=== PATIENT | female | born 1970 | race Caucasian/White ===

== ENCOUNTER 2024-10-28 00:33 | Day surgery (SDC) | payer OTHER, SELFPAY ==
[2024-10-18 13:37] VITALS: BMI 25.8
--- OUTSIDE RECORDS SUMMARY | 2024-10-28 00:35 | XMS_ITS | Encounter Summary ---
Author Organization [facility] Address [address] [place] [address] Care Team Providers Care Data Communications Technician Name Role Phone Flash Radha REYEZP Primary Care Provider [phone] Renee Ragland CERTIFIED NEURODIAGNOSTIC TECHNOLOGIST-C Unavailable [phone] Paul Mei MD Unavailable [phone] Encounter Details Date Type Department Care Team (Late st Contact Info) Description 10/29/2021 Prep for Procedure [facility] Medical [facility] General Surgery - [place] [address], [address] [place] [address] Clarence Chandler MD Social History Tobacco Use Types Packs/Day Years Used Date Smoking Tobacco: Never Smokeless Tobacco: Never Comments:Provider to pastoral counselor Alcohol Use Standard Drinks/Week Comments Yes 0 (1 standard drink = 0.6 oz pur e alcohol) Socially PHQ-2 Answer Date Recorded PHQ-2 Score - If the patient scores above 3, please move on to questions 3-9 1 10/21/2021 Comments No Sex and Gender Information Value Date Recorded Sex Assigned at Female 07/23/2024 7:02 AM SOA INTEGRATION ARCHITECT Legal Sex Female 10:49 PM CDT Gender Identity Female 09/27/2024 11:37 AM CDT Sexual Orientation Not on file 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 No / Unsure 10/25/2021 1:33 PM CDT documented as of this encounter Plan of Treatment Upcoming Encounters Date Type Department Care Team (Late st Contact Info) Description 11/07/2024 2:00 PM CDT Appointment [facility] Diabetes & Nutrition Services [address] [place] [address] Radha Vidales FNP [address] [place] [address] documented as of this encounter Visit Diagnoses Not on filedocumented in this encounter Additional Health Concerns Infection Onset Date Last Indicated Resolved Time COVID-19 Rule Out 10/28/2021 10/28/2021 11/04/2021 12:32 AM CDT COVID-19 Rule Out 02/26/2022 02/26/2022 02/28/2022 1:01 PM CDT COVID-19 Rule Out 04/18/2023 04/18/2023 04/18/2023 7:19 PM CDT Assessment Noted Time PHQ-9 Depression Total Score: 0 03/17/20 1:14 PM CDT documented as of this encounter Care Teams Data Communications Technician Relationship Specialty Start Date End Date Radha Vidales FNP [address] [place] [address] PCP - General Nurse Practitioner Family 03/10/21 Renee Ragland, CERTIFIED NEURODIAGNOSTIC TECHNOLOGIST-C [address] [place] [address] Nurse Practitioner NURSE PRACTITIONER 03/28/22 Paul Mei MD [address] [address] Referring Physician GASTROENTEROLOGY 03/28/22 documented as of this encounter
--- OUTSIDE RECORDS SUMMARY | 2024-10-28 00:35 | XMS_ITS | Encounter Summary ---
Author Organization [facility] Address [facility] [place] [address] Care Team Providers Care Dry Curer Name Role Phone Flash Radha REYES Primary Care Provider [phone] Renee Ragland HOME ATTENDANT-C Unavailable [phone] Paul Mei MD Unavailable [phone] Encounter Details Date Type Department Care Team (Late st Contact Info) Description 01/11/2023 Statzup Message Enc [facility] Medical [facility] General Surgery - [place] [address] [facility], [address] [place] [address] Renee Ragland, HOME ATTENDANT-C [address] [address] Question regarding CBC W/DIFF AUTOMATED Social History Tobacco Use Types Packs/Day Years Used Date Smoking Tobacco: Never Smokeless Tobacco: Never Comments:Provider to halfway house counselor Alcohol Use Standard Drinks/Week Comments Yes 0 (1 standard drink = 0.6 oz pur e alcohol) Socially PHQ-2 Answer Date Recorded PHQ-2 Score - If the patient scores above 3, please move on to questions 3-9 1 10/21/2021 Comments No Sex and Gender Information Value Date Recorded Sex Assigned at Female 07/23/2024 7:02 AM NETWORK RELATIONS CONSULTANT Legal Sex Female 10:49 PM CDT Gender Identity Female 09/27/2024 11:37 AM CDT Sexual Orientation Not on file 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 Not on file Not on file documented as of this encounter Plan of Treatment Upcoming Encounters Date Type Department Care Team (Late st Contact Info) Description 11/07/2024 2:00 PM CDT Appointment [facility] Diabetes & Nutrition Services [address] [place] [address] Radha Vidales FNP [address] [place] [address] documented as of this encounter Visit Diagnoses Not on filedocumented in this encounter Additional Health Concerns Infection Onset Date Last Indicated Resolved Time COVID-19 Rule Out 04/18/2023 04/18/2023 04/18/2023 7:19 PM CDT Assessment Noted Time PHQ-9 Depression Total Score: 0 03/17/20 1:14 PM CDT documented as of this encounter Care Teams Dry Curer Relationship Specialty Start Date End Date Radha Vidales FNP [address] [place] [address] PCP - General Nurse Practitioner Family 03/10/21 Renee Ragland, HOME ATTENDANT-C [address] [place] [address] Nurse Practitioner NURSE PRACTITIONER 03/28/22 Paul Mei MD [address] [address] Referring Physician GASTROENTEROLOGY 03/28/22 documented as of this encounter
--- OUTSIDE RECORDS SUMMARY | 2024-10-28 00:35 | XMS_ITS | Patient Health Record ---
Author Organization [facility] Address [address] [facility] [address] [place] [address] Care Team Providers Care Help Desk Internship Name Role Phone Flash POLO, Radha Primary Care Provider Penny Hernandez NP, FILOMENA Jay [phone] ALLERGIES No Known Allergies REASON FOR REFERRAL No Information MEDICATIONS Medication SIG (Take, Route, Frequency, Duration) Notes Start Date End Date Status Protonix 40 MG 1 tablet Orally Once a day Active Hyoscyamine Sulfate 0.125 MG DISSOLVE 1 TABLET UNDER TONGUE 3 TIMES A DAY NEEDED for 90 Active Multivitamins Active Famotidine 20 MG 1 tablet at bedtime as needed Orally Once a day Active Wellbutrin SR 100 MG 1 tablet in the morning Orally Once a day Active Fiber - as directed Orally A ctive Colestipol HCl 1 GM TAKE 2 TABLETS BY MOUTH EVERY DAY Orally Once a day for 30 days Needs office visit for future refills Active Encounters Encounter Location Date Provider Diagnosis [facility] [address] [facility] [address] [place] [address] 12/25/2023 FILOMENA NELSON [facility] [address] [facility] [address] [place] [address] 01/15/2024 FILOMENA NELSON PLAN OF TREATMENT Pending Test Test Name Order Date CT Scan : Abd & Pelvis with IV and oral contrast 03/03/2022 CT ABDOMEN W/O CONTRAST 03/28/2022 CT Abdomen and Pelvis 02/28/2022 BUN, Creatinine 03/30/2022 BUN, Creatinine 04/01/2022 Insurance Providers Payer Name Payer Address Payer Phone Subscriber Number Group Number Insured Name Patient Relationship to Insured Coverage Start Date Coverage End Date [employer] PPO [address] [address] [place], [place] [id number] 01 Elizabeth Porter Self - patient is the insured MEDICAL (GENERAL) HISTORY Medical History History ICD Code anxiety asthma kidney stones gerd ulcers gallbladder dysfunction depression Surgical History Surgery Date(Month/Year) cholecystectomy 90's uterine ablation cervical disc hernia repair colonoscopy/EGD 2013 colon/EGD 2003
--- OUTSIDE RECORDS SUMMARY | 2024-10-28 00:35 | XMS_ITS | Encounter Summary ---
Author Organization [facility] Address [address] [place] [address] Care Team Providers Care Diplomatic Interpreter/Translator Name Role Phone Flash Radha REYES Primary Care Provider [phone] Renee Ragland TITLE ABSTRACTOR-C Unavailable [phone] Paul Mei MD Unavailable [phone] Encounter Details Date Type Department Care Team (Late st Contact Info) Description 09/11/2024 MyChart Message Enc [facility] [address] [place], [place] [id number] Cheryl Mccoy, TECHNICAL SERVICES REPRESENTATIVE [address] [place], [place] [id number] Blood test Social History Tobacco Use Types Packs/Day Years Used Date Smoking Tobacco: Never Passive Smoke Exposure: Never Smokeless Tobacco: Never Comments:Provider to adolescent counselor Alcohol Use Standard Drinks/Week Comments Yes 0 (1 standard drink = 0.6 oz pur e alcohol) Socially PHQ-2 Answer Date Recorded Patient Health Questionnaire-2 Score 0 07/10/2024 Comments No Sex and Gender Information Value Date Recorded Sex Assigned at Female 07/23/2024 7:02 AM BLENDER Legal Sex Female 10:49 PM CDT Gender Identity Female 09/27/2024 11:37 AM CDT Sexual Orientation Not on file 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 Not on file Not on file documented as of this encounter Plan of Treatment Upcoming Encounters Date Type Department Care Team (Late st Contact Info) Description 11/07/2024 2:00 PM CDT Appointment [facility] Diabetes & Nutrition Services [address] [place] [address] Radha Vidales FNP [address] [place] [address] documented as of this encounter Visit Diagnoses Not on filedocumented in this encounter Additional Health Concerns Assessment Noted Time PHQ-9 Depression Total Score: 0 05/22/20 24 11:20 AM BLENDER documented as of this encounter Care Teams Diplomatic Interpreter/Translator Relationship Specialty Start Date End Date Radha Vidales FNP [address] [place] [address] PCP - General Nurse Practitioner Family 03/10/21 Renee Ragland, TITLE ABSTRACTOR-C [address] [place] [address] Nurse Practitioner NURSE PRACTITIONER 03/28/22 Paul Mei MD [address] [address] Referring Physician GASTROENTEROLOGY 03/28/22 documented as of this encounter
--- OUTSIDE RECORDS SUMMARY | 2024-10-28 00:35 | XMS_ITS | Encounter Summary ---
Author Organization [facility] Address [address] [place] [address] Care Team Providers Care Insurance Territory Manager Name Role Phone Radha Vidales Primary Care Provider Renee Ragland MANGANESE WHEELER-C Unavailable [phone] Paul Mei MD Unavailable [phone] Encounter Details Date Type Department Care Team (Late st Contact Info) Description 10/16/2024 Results Follow-Up [facility] [address] [place], [place] [id number] Radah Vidales FNP [address] [place] [id number] HEMOGLOBIN A1C, LIPID PROFILE, THYROID STIMULATING HORMONE, VITAMIN D, 25 OH TOTAL Social History Tobacco Use Types Packs/Day Years Used Date Smoking Tobacco: Never Passive Smoke Exposure: Never Smokeless Tobacco: Never Comments:Provider to pet counselor Alcohol Use Standard Drinks/Week Comments Yes 0 (1 standard drink = 0.6 oz pur e alcohol) Socially PHQ-2 Answer Date Recorded Patient Health Questionnaire-2 Score 0 07/10/2024 Comments No Sex and Gender Information Value Date Recorded Sex Assigned at Female 07/23/2024 7:02 AM TUBULAR PRODUCTS FABRICATOR Legal Sex Female 10:49 PM CDT Gender Identity Female 09/27/2024 11:37 AM CDT Sexual Orientation Not on file 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 documented in this encounter Plan of Treatment Upcoming Encounters Date Type Department Care Team (Late st Contact Info) Description 11/07/2024 2:00 PM CDT Appointment [facility] Diabetes & Nutrition Services [address] [place] [address] Radha Vidales FNP [address] [place] [address] documented as of this encounter Visit Diagnoses Not on filedocumented in this encounter Additional Health Concerns Assessment Noted Time PHQ-9 Depression Total Score: 0 05/22/20 24 11:20 AM TUBULAR PRODUCTS FABRICATOR documented as of this encounter Care Teams Insurance Territory Manager Relationship Specialty Start Date End Date Radha Vidales FNP [address] [place] [address] PCP - General Nurse Practitioner Family 03/10/21 Renee Ragland, MANGANESE WHEELER-C [address] [facility] [place] [address] Nurse Practitioner NURSE PRACTITIONER 03/28/22 Paul Mei MD [address] [address] Referring Physician GASTROENTEROLOGY 03/28/22 documented as of this encounter
--- OUTSIDE RECORDS SUMMARY | 2024-10-28 00:36 | XMS_ITS | Encounter Summary ---
Author Organization [facility] Address [address] [place] [address] Care Team Providers Care Compensation Administrator Name Role Phone Radha Vidales Renetta REYES Primary Care Provider [phone] Renee Ragland RESUME SPECIALIST-C Unavailable [phone] Paul Mei MD Unavailable [phone] Encounter Details Date Type Department Care Team (Late st Contact Info) Description 02/22/2022 Prep for Procedure [facility] One Day Services [address] [place] [address] Paul Mei MD [address] [facility] [address] [place] [address] Social History Tobacco Use Types Packs/Day Years Used Date Smoking Tobacco: Never Smokeless Tobacco: Never Comments:Provider to direct selling counselor Alcohol Use Standard Drinks/Week Comments Yes 0 (1 standard drink = 0.6 oz pur e alcohol) Socially PHQ-2 Answer Date Recorded PHQ-2 Score - If the patient scores above 3, please move on to questions 3-9 1 10/21/2021 Comments No Sex and Gender Information Value Date Recorded Sex Assigned at Female 07/23/2024 7:02 AM MINERALOGY TEACHER Legal Sex Female 10:49 PM CDT Gender Identity Female 09/27/2024 11:37 AM CDT Sexual Orientation Not on file 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 No / Unsure 02/22/2022 2:15 PM CDT documented as of this encounter Plan of Treatment Upcoming Encounters Date Type Department Care Team (Late st Contact Info) Description 11/07/2024 2:00 PM CDT Appointment [facility] Diabetes & Nutrition Services [address] [place] [address] Radha Vidales, [facility] [address] [facility] [place] [address] documented as of this encounter Results * PRE-SURGICAL/PRE-PROCEDURE CORONAVIRUS (COVID 19) (02/26/2022 10:55 AM CDT) SPEC DESCRIPTION NASAL 02/27/20 10:53 AM CDT [facility] CORONAVIRUS SARS COV 2 PCR (RESP) NEGATIVE NEGATIVE 02/28/2022 1:01 PM CDT [facility] Comment: THE SARS-CoV-2 TEST HAS BEEN AUTHORIZED BY THE FDA UNDER AN EUA FOR USE BY AUTHORIZED LABORATORIES. PERFORMED BY NUCLEIC ACID AMPLIFICATION PCR FIRST TEST UNKNOWN 02/26/2022 10:53 AM CDT [facility] EMPLOYED IN HEALTHCARE NO 02/26/2022 10:53 AM CDT [facility] SYMPTOMATIC DEFINED BY CDC NO 02/26/2022 10:53 AM CDT [facility] HOSPITALIZATION STATUS NO 02/26/2022 10:53 AM CDT [facility] PATIENT IN ICU NO 02/26/2022 10:53 AM CDT [facility] RESIDENT OF [facility] NO 02/26/2022 10:53 AM CDT [facility] NOT 02/26/2022 10:53 AM CDT [facility] NASAL STRUCTURE / Unknown 02/26/2022 10:55 AM CDT Paul Mei MD MICROBIOLOGY - GENERAL NICK CURTIS Final Result [facility] [address] [place] [address], [place] [phone] [facility] [address] [place] [address], [place] [phone] documented in this encounter Visit Diagnoses Diagnosis Preop testing- Primary Preoperative examination, unspecified documented in this encounter Additional Health Concerns Infection Onset Date Last Indicated Resolved Time COVID-19 Rule Out 02/26/2022 02/26/2022 02/28/2022 1:01 PM CDT COVID-19 Rule Out 04/18/2023 04/18/2023 04/18/2023 7:19 PM CDT Assessment Noted Time PHQ-9 Depression Total Score: 0 03/17/20 1:14 PM CDT documented as of this encounter Care Teams Compensation Administrator Relationship Specialty Start Date End Date Radha Vidales FNP [address] [place] [id number] PCP - General Nurse Practitioner Family 03/10/21 Renee Ragland, RESUME SPECIALIST-C [address] [place] [address] Nurse Practitioner NURSE PRACTITIONER 03/28/22 Paul Mei MD [address] [address] Referring Physician GASTROENTEROLOGY 03/28/22 documented as of this encounter
--- OUTSIDE RECORDS SUMMARY | 2024-10-28 00:36 | XMS_ITS | Clinical Summary ---
Author Organization [facility] Address [address] [place] [address] Care Team Providers Care Patents Examiner Name Role Phone Flash Radha K FNP Primary Care Provider [phone] Renee Ragland VALVE LINER RUBBER-C Unavailable [phone] Paul Mei MD Unavailable [phone] Allergies Active Allergy Reactions Criticality Noted Date Comments Amoxicillin-Pot Clavulanate Hives 04/20/2018 Patient states she is not allergic to penicillins or cephalosporins, just amoxicillin due to the hives Gluten Meal GI Upset 02/17/2023 Medications fluticasone propionate (FLONASE) 50 MCG/ACT nasal sprayIndications:Se asonal allergies USE 2 SPRAYS IN EACH NOSTRIL EVERY DAY 48 mL 2 Active buPROPion (WELLBUTRIN) 75 MG tabletIndications: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 180 tablet 4 4 Active Elastic Bandages & Supports (POST-OP SHOE/SOFT TOP WOMEN) MiscIndications:Darline sed fracture of base of fifth metatarsal bone with routine healing, left Wear daily x 3 weeks 1 each 4 Active fluticasone-salmete rol (WIXELA INHUB) 100-50 MCG/ACT inhalerIndications: Acute cough,Acute bronchitis, unspecified organism Inhale 1 puff into the lungs 2 (two) times daily. 14 capsule 4 Active albuterol sulfate HFA 108 (90 Base) MCG/ACT inhalerIndications: Acute cough,Bronchitis,Mi ld intermittent asthma with acute exacerbation (HHS/HCC) INHALE 2 PUFFS BY MOUTH EVERY 4 HOURS NEEDED FOR COUGH/WHEEZE 18 g 4 Active ALPRAZolam (XANAX) 0.25 MG tabletIndications:P anic attacks Take 1 tablet (0.25 mg total) by mouth as needed for Sleep. 10 tablet 5 Active famotidine (PEPCID) 20 MG tabletIndications:G astroesophageal reflux disease without esophagitis Take 1 tablet (20 mg total) by mouth 2 (two) times daily. 180 tablet 5 Active ondansetron (ZOFRAN-ODT) 4 MG disintegrating tabletIndications:N ausea Take 1 tablet (4 mg total) by mouth every 8 (eight) hours as needed for Nausea. 20 tablet 5 Active pantoprazole EC (PROTONIX) 40 MG tabletIndications:G astroesophageal reflux disease without esophagitis Take 1 tablet (40 mg total) by mouth daily. 90 tablet 1 5 Active valACYclovir (VALTREX) 1 g tabletIndications:H erpes labialis TAKE 2 TABLETS BY MOUTH TWICE A DAY X 1 DAY NEEDED FOR FEVER BLISTERS 12 tablet 5 Active meloxicam (MOBIC) 15 MG tabletIndications:A bdominal wall pain in right upper quadrant Take 1 tablet (15 mg total) by mouth daily. 14 tablet 5 Active Active Problems Problem Noted Date Diagnosed Date Abnormal uterine bleeding 02/24/2023 Abnormal ultrasound of endometrium 02/24/2023 Enteritis 10/21/2021 Mesenteric adenitis 10/21/2021 Unspecified abdominal pain 10/01/2021 Overview (10/21/2021): RLQ x 4 weeks, no appetite Mild persistent asthma with acute exacerbation ( HHS/HCC) 03/17/2021 Environmental and seasonal allergies 03/10/2021 Fibrocystic breast changes, right 03/28/2018 Anxiety and depression 06/11/2015 Encounters Date Type Department Care Team Description 10/16/2024 7:00 AM CDT Laboratory Only [facility] [address] [place] [address] Eve Odonnell NP Defrain, Chad J, MD 10/16/2024 6:56 AM CDT - 10/16/2024 11:59 PM CDT Hospital Encounter [facility] [address] [place] [address] Eve Odonnell NP Discharge Disposition: Home or Self Care (Routine Discharge) 10/16/2024 Results Follow-Up [facility] [address] [place] [address] Radha Vidales, SUPERVISOR WOUND HEMOGLOBIN A1C, LIPID PROFILE, THYROID STIMULATING HORMONE, VITAMIN D, 25 OH TOTAL 10/16/2024 Orders Only [facility] [address] [place] [address] Eve Odonnell NP 10/16/2024 Orders Only [facility] [address] [place] [address] Eve Odonnell NP 10/16/2024 Travel 10/03/2024 Telephone [facility] [address] [place] [address] Radha Vidales, SUPERVISOR WOUND Referral 09/30/2024 MyChart Message Enc [facility] [address] [place] [address] Radha Vidales, SUPERVISOR WOUND Referrals 09/27/2024 11:40 AM CDT Office Visit [facility] [address] [place] [address] Radha Vidales, SUPERVISOR WOUND Pain; Back Pain (Right side pain that goes to back sometimes) 09/27/2024 Travel 09/18/2024 Telephone [facility] [address] [place] [address] Radha Vidales, SUPERVISOR WOUND Referral 09/16/2024 7:56 AM CDT - 09/16/2024 11:59 PM CDT Hospital Encounter [facility] [address] [place] [address] Cheryl Pugh APRN Discharge Disposition: Home or Self Care (Routine Discharge) 09/16/2024 Travel 09/11/2024 6:33 AM CDT - 09/11/2024 11:59 PM CDT Hospital Encounter [facility] [address] [place] [address] Radha Vidales FNP Discharge Disposition: Home or Self Care (Routine Discharge) 09/11/2024 MyChart Message Enc [facility] [address] [place] [address] Cheryl Pugh APRN Blood test 09/11/2024 Travel 09/09/2024 8:40 AM CDT Office Visit [facility] [address] [place] [address] Cheryl Pugh APRN Knee Injury (left knee injury/pain strain. Happened yesterday morning./) 09/09/2024 MyChart Message Enc [facility] [address] [place] [address] Cheryl Pugh APRN First off wanted to say I appreciate how thorough u were with my ailments! But was gonna ask if there was a liver test and pancreas blood test we could possibly do, I can t get in for a sonogram till next week at the soonest and know those may come back 09/09/2024 Travel 08/21/2024 Telephone [facility] [address] [place] [address] Radha Vidales FNP Sinus Concern from Last 3 Months Immunizations Immunization Administration Dates Next Due Dtap 01/23/2020 Family History Medical History Relation Comments Hypertension Brother COPD Father Cancer Father multiple myeloma Father Cancer Mother Heart Disease Mother esophageal cancer Mother Heart Disease Paternal Grandmother Breast Cancer Neg Hx Relation Status Comments Brother Daughter Alive Father Mother Paternal Grandmother Son Alive Social History Tobacco Use Types Packs/Day Years Used Date Smoking Tobacco: Never Passive Smoke Exposure: Never Smokeless Tobacco: Never Tobacco Cessation:Counseling Given: No 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 Alcohol Use Standard Drinks/Week Comments Yes 0 (1 standard drink = 0.6 oz pur e alcohol) Socially PHQ-2 Answer Date Recorded Patient Health Questionnaire-2 Score 0 07/10/2024 Comments No Sex and Gender Information Value Date Recorded Sex Assigned at Female 07/23/2024 7:02 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 Sex Female 10:49 PM CDT Gender Identity Female 09/27/2024 11:37 AM CDT Sexual Orientation Not on file 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 Not on file Not on file Last Filed Vital Signs Vital Sign Reading Time Taken Comments Blood Pressure 98/62 09/27/2024 11:26 AM CDT Pulse 71 09/27/2024 11:26 AM CDT Temperature 37.4 C (99.3 F) 09/27/2024 11:26 AM CDT Respiratory Rate 16 09/27/2024 11:26 AM CDT Oxygen Saturation 99% 09/27/2024 11:26 AM CDT Inhaled Oxygen Concentration - - Weight 63.2 kg (139 lb 4 oz) 09/27/2024 11:26 AM CDT Height 154.9 cm (5' 1 ) 09/27/2024 11:26 AM CDT Body Mass Index 26.31 09/27/2024 11:26 AM CDT Plan of Treatment Upcoming Encounters Date Type Department Care Team (Late st Contact Info) Description 11/07/2024 2:00 PM CDT Appointment [facility] [address] [place] [address] Radha Vidales, [address] [place], [place] [id number], RD Health Maintenance Due Date Last Done Comments Cervical Cancer Screening Pa p Smear (Age 30 to 64) Every 3 Years 1972 Colorectal Cancer Screening Colonoscopy (10 Years) 1972 Annual Physical 01/29/1975 Hepatitis C 01/29/1990 Hepatitis B Vaccines (1 of 3 - 19+ 3-dose series) 01/29/1991 Pneumococcal Vaccine: 50+ Ye ars (1 of 2 - PCV) 01/29/1991 Cervical Cancer Screening Pa p with HPV Testing (Age 30 to 64) Every 5 Years 01/29/2002 Cervical Cancer Screening with HPV 01/29/2002 Zoster Vaccines (1 of 2) 01/29/2022 Mammogram Screening 04/05/2023 04/05/2021 COVID-19 Vaccine (1 - 2023-2 5 season) 2024 DTaP, Tdap and Td Vaccines ( 2 - Tdap) 01/22/2030 01/23/2020 PHQ-2 (Physician [place]) Completed 07/10/2024 Meningococcal B Vaccine Aged Out No l onger eligible based on patient's age to complete this topic Meningococcal Vaccine Aged Out No daniel barbara eligible based on patient's age to complete this topic RSV Immunizations Under 20 Months Aged Out No longer eligible based on patient's age to complete this topic Medical Devices Implanted Type Area Consolidator Device Identifier Shelf Expiration Date Model / Serial / Lot Bone Bone Neck Procedures Procedure Name Priority Date/Time Associated Diagnosis Comments ELASTASE, PANCREATIC (EL-1), FECAL, QUALITATIVE/SEMI-QUANT ITATIVE Routine 10/16/2024 7:30 AM CDT Celiac disease (HHS/HCC) Diarrhea Abdominal pain FECAL FAT, QUALITATIVE Routine 7:30 AM CDT Celiac disease (HHS/HCC) Diarrhea Abdominal pain CELIAC DISEASE COMP PANEL Routine 10/16/2024 7:03 AM CDT Celiac disease (HHS/HCC) Diarrhea of presumed infectious origin Stomach ache VITAMIN D, 25 OH TOTAL Routine 7:[address] [facility] TSH Routine 10/16/2024 7: 03 AM CDT [facility] LIPID W/CALC LDL Routine 10/16/2024 7:[address] [facility] HEMOGLOBIN A1C Routine 10/16/2024 7:03 AM CDT URINALYSIS AUTO DIP Routine 09/27/2024 Elevated blood sugar GLUCOSE BLOOD, MONITOR DEVICE Today 09/27/2024 Elevated blood sugar US ABD COMPLETE Routine 09/16/2024 8:49 AM CDT RUQ abdominal pain CBC W/DIFF AUTOMATED Routine 09/11/2024 6:35 AM CDT RUQ abdominal pain COMPREHENSIVE METABOLIC PANEL Routine 09/11/2024 6:35 AM CDT RUQ abdominal pain AMYLASE Routine 09/11/2024 6:35 AM CDT RUQ abdominal pain LIPASE Routine 09/11/2024 6:35 AM CDT RUQ abdominal pain MG SCREENING W ROCK LYNDA DIGI Routine 04/05/2021 10:55 AM CDT Breast cancer screening by mammogram from Last 3 Months or Most Recently Relevant to Health Maintenance Results * (ABNORMAL) FECAL FAT, QUALITATIVE (10/16/2024 7:30 AM CDT) FECAL FAT QUALITATIVE (STOOL) ABNORMAL( A) NORMAL 10/20/2024 1:20 PM CDT [facility] ERNESTINE MAE Comment: Test Performed by Jenny Jimenez, [employer] [facility] [place], [address] [place] [address] Sekou Kidd M.D., Ph.D., Director of Laboratories , [facility] [id number] 10/16/2024 7:30 AM CDT us Eve Odonnell NP LABORATORY Final Result [facility] [place] [id number] [place], [place] , * ELASTASE, PANCREATIC (EL-1), FECAL, QUALITATIVE/SEMI-QUANTITATIVE (10/16/2024 7:30 AM CDT) PANCREATIC ELASTASE-1 >800 >200 mcg/g 10/25/2024 12:32 AM CDT [facility]al TENZINSAHARA LY Comment: E-1 mcg/g feces Interpretation <100 Severe exocrine pancreatic insufficiency 100-200 Mild to moderate exocrine pancreatic insufficiency >200 Normal Test performed by [employer] [address] [place] [address] Diesel Lube Tech: Anabel Dillon MD,PHD,ZAIN Test Reported by [facility] [place], [employer], [address] [place], [place] Sekou Kidd M.D., Ph.D., Director of Laboratories , [facility] [id number] STOOL SPECIMEN / Unknown 10/16/2024 7:30 AM CDT us Eve Odonnell NP BODY FLUIDS AND STOOLS ORDERA BLES Final Result [facility] [id number] [place] [address], * CELIAC DISEASE COMP PANEL (10/16/2024 7:03 AM CDT) INTERPRETATION REPORT 10/21/2024 7:51 AM CDT [facility] Comment: No serological evidence for celiac disease is present. tTG may normalize in individuals with celiac disease who maintain a gluten free diet. If high suspicion of celiac disease, consider HLA DQ2 and DQ8 testing to rule out celiac disease. TISSUE TRANSGLUTAMINASE IGA AB <1.0 <15.0 U/mL 10/21/2024 7:51 AM CDT [facility] ERNESTINE MAE Comment: Value Interpretation <15.0 Antibody not detected > or = 15.0 Antibody detected IGA 206 47 - 310 mg/dL 10/21/2024 7:51 AM CDT [facility] ERNESTINE MAE Comment: Test Performed by [employer], [employer] [place], [address] [place], [place] Sekou Kidd M.D., Ph.D., Director of Laboratories , [facility] [id number] 10/16/2024 7:03 AM CDT Eve Odonnell NP LABORATORY Final Result GPal [address] , [place] [phone] * VITAMIN D, 25 OH TOTAL (10/16/2024 7:03 AM CDT) VITAMIN D 25 HYDROXY S/P/B 72 30 - 100 NG/ML 10/16/2024 10:49 AM CDT [facility] 10/16/2024 7:03 AM CDT Tyler Harris MD LABORATORY Final Result Performing Organization Address [facility]/ZIP Co de Phone Number [facility] [address] [place] [address], [place] [phone] * THYROID STIMULATING HORMONE (10/16/2024 7:03 AM CDT) TSH 2.140 0.358 - 3.74 uIU/ML 10/16/2024 10:47 AM CDT [facility] Comment: HIGH DOSES OF BIOTIN MAY INTERFERE WITH THIS TEST RESULT. CORRELATION TO CLINICAL HISTORY AND PRESENTATION RECOMMENDED. 10/16/2024 7:03 AM CDT Tyler Harris MD LABORATORY Final Result [facility] [address] [place] [address], [place] [phone] * (ABNORMAL) LIPID PROFILE (10/16/2024 7:03 AM CDT) CHOLESTEROL 182 <200 MG/DL 10/16/2024 10:47 AM CDT [facility] TRIGLYCERIDES 85 <150 MG/DL 10/16/2024 10:47 AM CDT [facility] HDL 63 >40.0 MG/DL 10/16/2024 10:47 AM CDT [facility] LDL (CALCULATED) 102(H) <100 MG/DL 10/16/2024 10:47 AM CDT [facility] NON HDL CHOLESTEROL 119 <130 MG/DL 10/16/2024 10:47 AM CDT [facility] CHOL/HDL RATIO 2.9 0.0 - 4.5 10/16/2024 10:47 AM CDT [facility] VLDL CALCULATION 17 5 - 55 MG/DL 10/16/2024 10:47 AM CDT [facility] LIPID INTERPRETATION 10/16/2024 10:47 AM CDT [facility] Comment: NIH CONCENSUS REPORT RECOMMENDATIONS: ADULT CHILD LOW RISK: CHOLESTEROL <200 <170 TRIGLYCERIDE <150 --- HDL >=60 --- LDL <100 <110 BORDERLINE: CHOLESTEROL 200-239 170-199 TRIGLYCERIDE 150-199 --- HDL 40-59 --- LDL 100-159 110-129 HIGH RISK: CHOLESTEROL >=240 >=200 TRIGLYCERIDE >=200 --- HDL <40 --- LDL >=160 >=130 10/16/2024 7:03 AM CDT Tyler Harris MD LABORATORY Final Result [facility] [address] [place] [address], [place] [phone] * HEMOGLOBIN A1C (10/16/2024 7:03 AM CDT) HGB A1C 5.0 <5.7 % 10/16/2024 10:58 AM CDT [facility] Comment: ADA GUIDELINES 2010 5.7 TO 6.4% INCREASED RISK OF DIABETES > OR = 6.5% CONSISTENT WITH DIABETES ESTIMATED AVG GLUCOSE 97 mg/dL 10/16/2024 10:58 AM CDT [facility] 10/16/2024 7:03 AM CDT us Tyler Harris MD LABORATORY Final Result [facility] [address] [place] [address], [place] [phone] * (ABNORMAL) URINALYSIS AUTO DIP (09/27/2024) Pathologist [facility] COLOR (U) PALE YELLOW [facility]LLOW [facility] ([facility]), [place] TRANSPARENCY CLOUDY(A) [facility]), [place] GLUCOSE (U) NEGATIVE NEGATIVE MG/DL [facility] (201), [place] BILIRUBIN (U) NEGATIVE NEGATIVE -[facility] (201), [place] KETONES MG/DL (U) NEGATIVE NEGATIVE MG/DL [facility] (201)[place] SPECIFIC GRAVITY (U) 1.015 1.001 - 1.035 [facility] (201), [place] BLOOD (U) NEGATIVE NEGATIVE [facility] (201), [place] U PH 6.0 5.0 - 9.0 [facility] (201), [place] PROTEIN (U) NEGATIVE NEGATIVE mg/dL [facility] (201), [place] UROBILINOGEN 0.2 0.2 - 1.0 EU/dL = mg/dL [facility] (201), [place] NITRITES NEGATIVE NEGATIVE MG/DL [facility] (201), [place] LEUKOCYTES (U) NEGATIVE NEGATIVE -HE [facility] (201)[place] URINE SPECIMEN OBTAINED BY CLEAN CATCH PROCEDURE / Unknown 09/27/2024 Radha Vidales [facility] URINE ORDERABLES Final Result Performing Organization Address [facility] Co de Phone Number [facility] (201), [address] [address], [place] [phone] * GLUCOSE BLOOD, MONITOR DEVICE (09/27/2024) GLUCOSE WHOLE BLOOD 84 70 - 100 mg/dL [facility] (201), [place] 09/27/2024 Radha Vidales SUPERVISOR WOUND LABORATORY Final Result Performing Organization Address [facility] Co de Phone Number [facility] (201), [address] [address], [place] [phone] * US ABD COMPLETE (09/16/2024 8:49 AM CDT) Anatomical Region Laterality Modality Abdomen Computed Tomogra phy 09/16/2024 9:53 AM CDT Impressions 09/16/2024 9:59 AM CDT IMPRESSION: 1. Cholecystectomy.. No biliary ductal dilatation. 2. No hydronephrosis Ordered By: CHERYL PUGH Interpreted By: Wilber Ayala, 09/16/2024 9:53 AM Narrative 09/16/2024 9:59 AM CDT [address] [place] [address] IMAGING STUDIES: US ABD COMPLETE DATE: 09/16/2024 7:57 AM COMPARISON STUDIES: No previous exams available. Correlation with CT abdomen of 06/10/2023 CLINICAL HISTORY: RUQ pain, tenderness, stool changes . FINDINGS: Real-time ultrasound examination performed by the waiter and cashier demonstrates: No obvious focal lesions within the partially visualized pancreatic region. The liver demonstrates mild fatty infiltration without evidence of focal lesions. The portal vein and hepatic veins are patent. Cholecystectomy. The common bile duct measures 4 mm. The right kidney measures 10.8 x 4.0 x 4.8 cm in maximum dimension with normal corticomedullary differentiation and no hydronephrosis. The left kidney measures 11.1 x 5.4 x 5.9 cm in maximum dimension with normal corticomedullary differentiation and no hydronephrosis. As noted on prior CT there is simple appearing cyst in the superior left renal cortex measuring 1.0 x 0.7 x 1.1 cm.. Also in the superior left renal cortex, there is well-defined probable lipoma measuring 9.3 x 9.2 x 9.3 mm. Seen on prior CT. The spleen measures 9.2 x 3.6 x 2.9 cm maximum dimension, appears homogeneous with no focal lesions. The Aorta and inferior Vena Cava are patent. . Low volume urinary bladder without focal mass. Volume of 32 mL Procedure Note Niraj Ayala MD - 09/16/[address] [place] [address] IMAGING STUDIES: US ABD COMPLETE DATE: 09/16/2024 7:57 AM COMPARISON STUDIES: No previous exams available. Correlation with CTabdomen of 06/10/2023 CLINICAL HISTORY: RUQ pain, tenderness, stool changes . FINDINGS: Real-time ultrasound examination performed by the ultrasonographerdemonstrates: No obvious focal lesions within the partially visualized pancreaticregion. The liver demonstrates mild fatty infiltration without evidence of focallesions. The portal vein and hepatic veins are patent. Cholecystectomy. The common bile duct measures 4 mm. The right kidney measures 10.8 x 4.0 x 4.8 cm in maximum dimension withnormal corticomedullary differentiation and no hydronephrosis. The left kidney measures 11.1 x 5.4 x 5.9 cm in maximum dimension withnormal corticomedullary differentiation and no hydronephrosis. As noted onprior CT there is simple appearing cyst in the superior left renal cortexmeasuring 1.0 x 0.7 x 1.1 cm.. Also in the superior left renal cortex,there is well-defined probable lipoma measuring 9.3 x 9.2 x 9.[address] The spleen measures 9.2 x 3.6 x 2.9 cm maximum dimension, appearshomogeneous with no focal lesions. The Aorta and inferior Vena Cava are patent. . Low volume urinary bladder without focal mass. Volume of 32 mL IMPRESSION: 1. Cholecystectomy.. No biliary ductal dilatation. 2. No hydronephrosis Ordered By: CHERYL PUGH Interpreted By: Wilber Ayala, 09/16/2024 9:53 AM us Cheryl Pugh BIOINFORMATICS SCIENTIST ULTRASOUND Final Res ult * (ABNORMAL) COMPREHENSIVE METABOLIC PANEL (09/11/2024 6:35 AM CDT) [facility] GLUCOSE 95 70 - 99 MG/DL 09/11/2024 7:27 AM CDT [facility] BUN 11 7 - 18 MG/DL 09/11/2024 7:27 AM CDT [facility] CREATININE S/P/B 0.85 0.50 - 1.20 MG/DL 09/11/2024 7:27 AM CDT [facility] SODIUM S/P/B 139 136 - 145 MMOL/L 09/11/2024 7:27 AM CDT [facility] POTASSIUM S/P/B 4.1 3.5 - 5.1 MMOL/L 09/11/2024 7:27 AM CDT [facility] CHLORIDE S/P/B 102 100 - 108 MMOL/L 09/11/2024 7:27 AM CDT [facility] CO2 27.2 21.0 - 32.0 MMOL/L 09/11/2024 7:27 AM CDT [facility] CALCIUM S/P/B 8.3(L) 8.5 - 10.1 MG/DL 09/11/2024 7:27 AM CDT [facility] BILIRUBIN TOTAL S/P/B 0.3 0.2 - 1.2 MG/DL 09/11/2024 7:27 AM CDT [facility] Comment: THIS ASSAY IS NOT RECOMMENDED FOR PATIENTS UNDERGOING TREATMENT WITH ELTROMBOPAG DUE TO THE POTENTIAL FOR FALSELY ELEVATED RESULTS. TOTAL PROTEIN S/P/B 7.3 6.4 - 8.2 G/DL 09/11/2024 7:27 AM CDT [facility] ALBUMIN S/P/B 3.5 3.4 - 5.0 G/DL 09/11/2024 7:27 AM CDT [facility] AST 23 15 - 37 U/L 09/11/2024 7:27 AM CDT [facility] ALT 18 14 - 55 U/L 09/11/2024 7:27 AM CDT [facility] ALKALINE PHOSPHATASE S/P/B 80 50 - 136 U/L 09/11/2024 7:27 AM CDT [facility] ANION GAP 9.8 5.0 - 15.0 MMOL/L 09/11/2024 7:27 AM CDT [facility] BUN CREATININE RATIO 12.9 6 - 26 09/11/2024 7:27 AM T [facility] A/G RATIO 0.9(L) 1.0 - 2.5 RATIO 09/11/2024 7:27 AM CDT [facility] GFR ESTIMATE 82(L) >90 ML/MIN/1.7 3 M2 09/11/2024 7:27 AM CDT [facility] Comment: NOTE: eGFR is not calculated for patients <18 years of age. This is an estimated GFR calculation using the new CKD EPI creatinine equation without race and so does not require a correction factor for race. This estimated GFR should not be used for calculating drug doses. 09/11/2024 6:35 AM CDT us Cheryl Pugh BIOINFORMATICS SCIENTIST LABORATORY Final Res ult [address] [place] [address], * (ABNORMAL) CBC W/DIFF AUTOMATED (09/11/2024 6:35 AM CDT) WBC 9.60 4.50 - 11.00 x10'3/uL 09/11/2024 7:51 AM CDT [facility] RBC 4.22 4.00 - 5.20 x10'6/uL 09/11/2024 7:51 AM CDT [facility] HGB 13.0 12.0 - 16.0 G/DL 09/11/2024 7:51 AM CDT [facility] HCT 39.4 38.0 - 48.0 % 09/11/2024 7:51 AM CDT [facility] MCV 93.4 80.0 - 100.0 FL 09/11/2024 7:51 AM CDT [facility] MCH 30.8 26.0 - 34.0 PG 09/11/2024 7:51 AM CDT [facility] MCHC 33.0 31.0 - 37.0 G/DL 09/11/2024 7:51 AM CDT [facility] RDW 12.7 11.6 - 14.8 % 09/11/2024 7:51 AM CDT [facility] PLT 357 130 - 400 x10'3/uL 09/11/2024 7:51 AM CDT [facility] MPV 10.0 7.0 - 12.0 FL 09/11/2024 7:51 AM CDT [facility] CBC COMMENT AUTOMATED RBC MORPHOLOGY AND PLATELET EVALUATION NORMAL 09/11/2024 7:51 AM CDT [facility] NEUTROPHILS % 72.7 40.0 - 74.0 % 09/11/2024 7:51 AM CDT [facility] LYMPHOCYTES % 15.0 14.0 - 46.0 % 09/11/2024 7:51 AM CDT [facility] MONOCYTES % 9.2 4.0 - 13.0 % 09/11/2024 7:51 AM CDT [facility] EOSINOPHILS 2.1 0.0 - 7.0 % 09/11/2024 7:51 AM CDT [facility] BASOPHILS 0.5 0.0 - 3.0 % 09/11/2024 7:51 AM CDT [facility] IMMATURE GRANS % 0.5(H) 0.0 - 0.43 % 09/11/2024 7:51 AM CDT [facility] NRBC % 0.0 % 09/11/2024 7:51 AM CDT [facility] ABS. NEUTROPHILS TOTAL 6.98 1.69 - 7.81 x10'3/uL 09/11/2024 7:51 AM CDT [facility] ABS. LYMPHOCYTES 1.44 0.21 - 5.42 x10'3/uL 09/11/2024 7:51 AM CDT [facility]. MONOCYTES 0.88 0.04 - 1.37 x10'3/uL 09/11/2024 7:51 AM CDT [facility]. EOSINOPHILS 0.20 0.00 - 0.68 x10'3/uL 09/11/2024 7:51 AM CDT [facility]. BASOPHILS 0.05 0.00 - 0.08 x10'3/uL 09/11/2024 7:51 AM CDT [facility]. IMMATURE GRANULOCYTES 0.05 0.00 - 0.06 x10'3/uL 09/11/2024 7:51 AM CDT [facility]. NUCLEATED RBC'S 0.00 0.00 - 0.01 x10'3/uL 09/11/2024 7:51 AM CDT [facility] 09/11/2024 6:35 AM CDT us Cheryl Pugh BIOINFORMATICS SCIENTIST LABORATORY Final Res ult [facility] [address] [place] [address], * AMYLASE (09/11/2024 6:35 AM CDT) AMYLASE S/P/B 70 25 - 115 UNITS/L 09/11/2024 7:27 AM CDT [facility] 09/11/2024 6:35 AM CDT Cheryl Daryl Livingston BIOINFORMATICS SCIENTIST LABORATORY Final Res ult Performing Organization Address [facility] Co de Phone Number [facility] [address] [place] [address], [place] * LIPASE (09/11/2024 6:35 AM CDT) LIPASE 73 16 - 77 UNITS/L 09/11/2024 7:27 AM CDT [facility] 09/11/2024 6:35 AM CDT [facility] Final Res ult Performing Organization Address [facility] de Phone Number [facility] [address] [place] [address], [place] * MG SCREENING W ROCK LYNDA DIGI (04/05/2021 10:55 AM CDT) Anatomical Region Laterality Modality Breast Bilateral Mammography 04/05/2021 11:3 9 AM CDT Narrative 04/05/2021 11:39 AM CDT EXAMINATION: MG SCREENING W ROCK LYNDA DIGI WITH TOMOSYNTHESIS AND COMPUTER-AIDED DETECTION (CAD) DATE: 04/05/2021 10:42 AM CLINICAL HISTORY: screening . Benign right breast biopsy 2017, benign excisional biopsy bilaterally 2014, right 2004 COMPARISON STUDIES: 08/13/2018, 08/18/2014, 09/03/2012. FINDINGS: Bilateral CC, MLO, 2-D and 3-D acquisitions. Heterogeneously dense residual fibroglandular parenchyma unfortunately could obscure underlying lesions. Similar in appearance and distribution to the previous exams. No evidence of dominant mass, architectural distortion, skin thickening, nipple retraction or suspicious clusters of microcalcifications. Benign appearing calcifications redemonstrated. Post biopsy clip on the right. CONCLUSION: 1. BI-RADS Category 2 - benign findings. Annual screening mammography recommended. 2. BREAST TISSUE COMPOSITION: The breast tissue is heterogeneously dense, which may obscure small masses. MQSA BI-RADS Categories: Category 0 - needs additional imaging evaluation. Category 1 - negative. Category 2 - benign findings. Category 3 - probably benign findings, but short interval follow-up is recommended. Category 4 - suspicious abnormality and biopsy should be considered though the lesion may well be benign. Category 5 - highly suggestive of malignancy and appropriate action should be taken. A) A negative report should not delay a biopsy if a dominant or clinically suspicious mass is present. B) Adenosis and dense breasts may obscure an underlying neoplasm. C) Study interpreted with computer aided detection. Voice recognition software utilized. Referred By: RADHA VIDALES Interpreted By: Rashi Liao, 04/05/2021 11:39 AM Radha Vidales SUPERVISOR WOUND MAMMO Final Result from Last 3 Months or Most Recently Relevant to Health Maintenance Insurance AET[employer] Care Teams Patents Examiner Relationship Specialty Start Date End Date Radha Vidales FNP [address] [place] [address] PCP - General Nurse Practitioner Family 03/10/21 Renee Ragland, VALVE LINER RUBBER-C [address] [place] [address] Nurse Practitioner NURSE PRACTITIONER 03/28/22 Paul Mei MD [address] [address] Referring Physician GASTROENTEROLOGY 03/28/22
--- OUTSIDE RECORDS SUMMARY | 2024-10-28 00:36 | XMS_ITS | Encounter Summary ---
Author Organization [facility] Address [facility] [place] [address] Care Team Providers Care Gold Nib Grinder Name Role Phone Vidales Radha REYEZP Primary Care Provider Renee Ragland RESTAURANT FLOOR MANAGER-C Unavailable Paul Mei MD Unavailable Encounter Details Date Type Department Care Team (Latest Contact Info) Description 05/13/2022 [employer] Message Enc [facility] Medical Group General Surgery - [place] [address], [address] [place] [address] Renee Ragland, RESTAURANT FLOOR MANAGER-C [address] [address] They have been trying to refill This prescription for two weeks Social History Tobacco Use Types Packs/Day Years Used Date Smoking Tobacco: Never Smokeless Tobacco: Never Comments:Provider to social services counselor Alcohol Use Standard Drinks/Week Comments Yes 0 (1 standard drink = 0.6 oz pur e alcohol) Socially PHQ-2 Answer Date Recorded PHQ-2 Score - If the patient scores above 3, please move on to questions 3-9 1 10/21/2021 Comments No Sex and Gender Information Value Date Recorded Sex Assigned at Female 07/23/2024 7:[address] CONSTRUCTION INSPECTOR Legal Sex Female 10:49 PM CDT Gender [...] suspected to have Coronavirus/COVID-19? No / Unsure 05/13/2022 1:[address] CONSTRUCTION INSPECTOR documented as of this encounter Plan of Treatment Upcoming Encounters Date Type Department Care Team (Late st Contact Info) Description 11/07/2024 2:00 PM CDT Appointment [facility] Diabetes & Nutrition Services [address] [place] [address] Radha Vidales FNP [address] [place] [address] documented as of this encounter Visit Diagnoses Not on filedocumented in this encounter Additional Health Concerns Infection Onset Date Last Indicated Resolved Time COVID-19 Rule Out 04/18/2023 04/18/2023 04/18/2023 7:19 PM CDT Assessment Noted Time PHQ-9 Depression Total Score: 0 03/17/20 21 1:14 PM CDT documented as of this encounter Care Teams Gold Nib Grinder Relationship Specialty Start Date End Date Radha Vidales FNP [address] [place] [address] PCP - General Nurse Practitioner Family 03/10/21 Renee Ragland, RESTAURANT FLOOR MANAGER-C [address] [place] [address] Nurse Practitioner NURSE PRACTITIONER 03/28/22 Paul Mei MD [address] [address] Referring Physician GASTROENTEROLOGY 03/28/22 documented as of this encounter
--- OUTSIDE RECORDS SUMMARY | 2024-10-28 00:36 | XMS_ITS | Clinical Summary ---
Author Organization [facility] Address [address] [place] [address] Care Team Providers Care On Site Wastewater Systems Technician Name Role Phone Ronit Gallegos NP Primary Care Provider [phone] Allergies No known active allergies Medications buPROPion HCl (WELLBUTRIN XL) 150 mg Extended Release 24 hour tablet 02/26/2018 Active raNITIdine (ZANTAC) 300 mg tablet Take 300 mg by mouth daily at bedtime. Active multivitamin (DAILY-SPENSER) tablet Take 1 Tablet by mouth daily. Active melatonin 3 mg Tablet Take by mouth nightly as needed for Insomnia. Active Active Problems Problem Noted Date Diagnosed Date Fibrocystic breast changes, right 03/28/2018 Resolved Problems Problem Noted Date Diagnosed Date Resolved Date Abnormal mammogram 03/19/2018 9 Pain of both breasts 03/19/2018 019 Abnormal ultrasound of breast 03/19/2018 10/04/2018 Social History Tobacco Use Types Packs/Day Years Used Date Smoking Tobacco: Never Smokeless Tobacco: Never Alcohol Use Standard Drinks/Week Comments Yes 0 (1 standard drink = 0.6 oz pur e alcohol) occasional Comments No Sex and Gender Information Value Date Recorded Sex Assigned at Not on file Legal Sex Female 1:52 PM CDT Gender Identity Not on file Sexual Orientation Not on file Last Filed Vital Signs Vital Sign Reading Time Taken Comments Blood Pressure 102/70 10/04/2018 2:24 PM CDT Pulse 74 10/04/2018 2:24 PM CDT Temperature 36.7 C (98 F) 10/04/2018 2:24 PM CDT Respiratory Rate - - Oxygen Saturation 97% 10/04/2018 2:24 PM CDT Inhaled Oxygen Concentration - - Weight 64.7 kg (142 lb 9.6 oz) 10/04/2018 2:24 P M CDT Height 157.5 cm (5' 2 ) 10/04/2018 2:24 PM CDT Body Mass Index 26.08 10/04/2018 2:24 PM CDT Plan of Treatment Health Maintenance Due Date Last Done Comments DTAP/TDAP/TD VACCINES (1 - Tdap) 01/29/1991 HEPATITIS B VACCINES (1 of 3 - 19+ 3-dose series) 01/02 HPV/Cotest (21-29) 01/29/1993 CERVICAL CANCER SCREENING 01/29/2002 HPV/Cotest (30-) 01/29/2002 PAP SMEAR 01/29/2002 COLORECTAL SCREENING 01/29/2017 Colorectal Cancer Screening 01/29/2017 FIT-DNA Q 3 years 01/29/2017 FIT/FOBT Q 1 year 01/29/2017 Flex Sig/CT Colonography Q 5 years 01/29/2017 BREAST CANCER SCREENING 08/13/2019 08/13/2018 ZOSTER VACCINE (1 of 2) 01/29/2022 INFLUENZA VACCINE (#1) 2024 Procedures Procedure Name Priority Date/Time Associated Diagnosis Comments MAMMO SCREENING BILAT Routine 08/13/2018 from Last 3 Months or Most Recently Relevant to Health Maintenance Results * MAMMO SCREENING BILAT (08/13/2018) Anatomical Region Laterality Modality Breast Bilateral Mammography us Abstract Provider MAMMO ORDERABLES Final Result from Last 3 Months or Most Recently Relevant to Health Maintenance Insurance AETNA CHOICE POS II Care Teams On Site Wastewater Systems Technician Relationship Specialty Start Date End Date Ronit Gallegos NP [address] [place] [address] PCP - General NURSE PRACTITIONER 03/15/18
--- OUTSIDE RECORDS SUMMARY | 2024-10-28 00:36 | XMS_ITS ---
Author Organization [facility] Address [address] [facility] [address] [facility] [address] [place] [address] Care Team Providers Care Log Feeder Name Role Phone Flash POLO, Radha Primary Care Provider Unavailab sunni NELSON NP, RENEE Jay [phone] REASON FOR VISIT GERD, abd pain, bowel issues Encounters Encounter Location Date Provider Diagnosis [facility] [address] [facility] [address] [place] [address] 12/25/2023 RENEE NELSON PLAN OF TREATMENT No Information Progress Notes * Elizabeth PORTEROB: (54 yo F)Acc No.[id number]:12/25/2023 Progress Notes Patient: Elizabeth PORTER Appointment Provider: Renee Nelson CNP :1970 Age:53 Y Sex:Female Date:12/25/2023 Address:[address] [place], [place] [phone] Pcp:Radha Vidales NP Subjective: * Chief Complaints: * 1. GERD, abd pain, bowel issues. * Medical History: Objective: Assessment: Plan: * Treatment: * Images: * Electronically signed by TD NELSON COMMERCIAL LINES INSURANCE AGENT, MSN STREET DEPARTMENT DISPATCHER-BC on 10/28/2024 at 01:35 AM EDT Sign off status: Pending * Appointment Provider: Renee Nelson CNP Date: 12/25/2023
--- OUTSIDE RECORDS SUMMARY | 2024-10-28 00:36 | XMS_ITS | Encounter Summary ---
Author Organization [facility] Address [address] [place] [address] Care Team Providers Care Retail Commission Sales Associate Name Role Phone Flash Radha REYES Primary Care Provider [phone] Renee Ragland INSPECTOR CONVEYOR LINE-C Unavailable [phone] Paul Mei MD Unavailable [phone] Encounter Details Date Type Department Care Team (Late Contact Info) Description 12/28/2022 MyChart Message Enc [facility] Medical [facility] - [facility] [address] [place] [address] [employer] [facility] Provider Air Quality Message Social History Tobacco Use Types Packs/Day Years Used Date Smoking Tobacco: Never Smokeless Tobacco: Never Comments:Provider to cruise counselor Alcohol Use Standard Drinks/Week Comments Yes 0 (1 standard drink = 0.6 oz pur e alcohol) Socially PHQ-2 Answer Date Recorded PHQ-2 Score - If the patient scores above 3, please move on to questions 3-9 1 10/21/2021 Comments No Sex and Gender Information Value Date Recorded Sex Assigned at Female 07/23/2024 7:02 AM CENTRAL OFFICE MECHANIC Legal Sex Female 10:49 PM CDT Gender Identity Female 09/27/2024 11:37 AM CDT Sexual Orientation Not on file 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 Not on file Not on file documented as of this encounter Plan of Treatment Upcoming Encounters Date Type Department Care Team (Late Contact Info) Description 11/07/2024 2:00 PM CDT Appointment [facility] Diabetes & Nutrition Services [address] [place] [address] Radha Vidales FNP [address] [place] [address] documented as of this encounter Visit Diagnoses Not on filedocumented in this encounter Additional Health Concerns Infection Onset Date Last Indicated Resolved Time COVID-19 Rule Out 04/18/2023 04/18/2023 04/18/2023 7:19 PM CDT Assessment Noted Time PHQ-9 Depression Total Score: 0 03/17/20 1:14 PM CDT documented as of this encounter Care Teams Retail Commission Sales Associate Relationship Specialty Start Date End Date Radha Vidales FNP [address] [place] [address] PCP - General Nurse Practitioner Family 03/10/21 Renee Ragland, INSPECTOR CONVEYOR LINE-C [address] [place] [address] Nurse Practitioner NURSE PRACTITIONER 03/28/22 Paul Mei MD [address] [address] [address] Referring Physician GASTROENTEROLOGY 03/28/22 documented as of this encounter
--- OUTSIDE RECORDS SUMMARY | 2024-10-28 00:36 | XMS_ITS | Encounter Summary ---
Author Organization [facility] Address [facility] [place] [address] Care Team Providers Care Ell Teacher Name Role Phone Flash Radha REYES Primary Care Provider [phone] Renee Ragland SHIELD CLEANER-C Unavailable [phone] Paul Mei MD Unavailable [phone] Encounter Details Date Type Department Care Team (Late st Contact Info) Description 04/08/2022 [employer] Management Message Enc [facility] Medical Group General Surgery - [place] [address] [facility], [address] [place] [address] Renee Ragland, SHIELD CLEANER-C [address] [address] Intussusception Social History Tobacco Use Types Packs/Day Years Used Date Smoking Tobacco: Never Smokeless Tobacco: Never Comments:Provider to insurance counselor Alcohol Use Standard Drinks/Week Comments Yes 0 (1 standard drink = 0.6 oz pur e alcohol) Socially PHQ-2 Answer Date Recorded PHQ-2 Score - If the patient scores above 3, please move on to questions 3-9 1 10/21/2021 Comments No Sex and Gender Information Value Date Recorded Sex Assigned at Female 07/23/2024 7:02 AM DEVIL TENDER Legal Sex Female 10:49 PM CDT Gender [...] suspected to have Coronavirus/COVID-19? No / Unsure 04/04/2022 10:43 AM CDT documented as of this encounter Plan of Treatment Upcoming Encounters Date Type Department Care Team (Late st Contact Info) Description 11/07/2024 2:00 PM CDT Appointment [facility] Diabetes & Nutrition Services [address] [place] [address] Radha Vidales FNP [address] [place] [address] documented as of this encounter Visit Diagnoses Not on filedocumented in this encounter Additional Health Concerns Infection Onset Date Last Indicated Resolved Time COVID-19 Rule Out 04/18/2023 04/18/2023 04/18/2023 7:19 PM CDT Assessment Noted Time PHQ-9 Depression Total Score: 0 03/17/20 21 1:14 PM CDT documented as of this encounter Care Teams Ell Teacher Relationship Specialty Start Date End Date Radha Vidales FNP [address] [place] [address] PCP - General Nurse Practitioner Family 03/10/21 Renee Ragland, SHIELD CLEANER-C [address] [place] [address] Nurse Practitioner NURSE PRACTITIONER 03/28/22 Paul Mei MD [address] [facility] [address] [place] [address] Referring Physician GASTROENTEROLOGY 03/28/22 documented as of this encounter
--- OUTSIDE RECORDS SUMMARY | 2024-10-28 00:36 | XMS_ITS ---
Author Organization [facility] Address [address] [facility] [facility] [address] [place] [address] Care Team Providers Care Verifier Name Role Phone Flash POLO, Radha Primary Care Provider Unavailab sunni NELSON NP, RENEE Jya REASON FOR VISIT GI/med check Encounters Encounter Location Date Provider Diagnosis [facility] [address] [facility] [facility] [address] [place] [address] 01/15/2024 RENEE NELSON PLAN OF TREATMENT No Information Progress Notes * Elizabeth PORTERelleDOB: (54 yo F)Acc No.[id number]:01/15/2024 Progress Notes Patient: Elizabeth PORTER Appointment Provider: Renee Nelson CNP :1970 Age:53 Y Sex:Female Date:01/15/2024 Address:[address] [place], [place] [phone] Pcp:Radha Vidales NP Subjective: * Chief Complaints: * 1. GI/med check. * Medical History: Objective: Assessment: Plan: * Treatment: * Images: * Sign off status: Pending * Appointment Provider: Renee Nelson CNP Date: 01/15/2024
[2024-10-28 12:45] VITALS: BP 112/66; PULSE 71; RESP 16; TEMP 37.2; O2SAT 94; BMI 24.8
[2024-10-28] MEDS: LACTATED RINGERS 1,000 ML 150 ML IV CONT (12:58)
--- NOTE | 2024-10-28 14:37 | P.PNAN_ITS ---
Anes - Initial Pre Proc Eval Procedure: Operation Date: 10/28/24 14:00 Proposed Procedures p Esophagogastroduodenoscopy & Colonoscopy - Alec Mendez MD Date/Time: 10/28/24 14:37 Surgeon: Alec Mendez MD Pre Op Diagnosis: Abnormal findings on diagnostic imaging of other p Patient Data Age: 54 Gender: F Height: 1.57 m Weight: 61.6 kg Last Vital Signs Temp 98.9 F 10/28/24 12:45 Pulse 71 10/28/24 12:45 Resp 16 10/28/24 12:45 BP 112/66 10/28/24 12:45 Pulse Ox 94 10/28/24 12:45 O2 Del Method Room Air 10/28/24 12:45 Allergies Allergy/AdvReac Type Severity Reaction Status Date / Time amoxicillin (From Augmentin) Allergy Mild Unknown Verified 10/28/24 12:43 clavulanic acid (From Allergy Mild Unknown Verified 10/28/24 12:43 Augmentin) Home Medications ?Medication ?Instructions ?Recorded ?Confirmed ?Type alprazolam 0.25 mg tablet 0.25 mg PO QHS PRN anxiety 10/10/24 10/18/24 History bupropion HCl 75 mg tablet 75 mg PO DAILY 10/10/24 10/28/24 History dicyclomine 10 mg capsule 10 mg PO TID PRN abdominal pain 10/10/24 10/18/24 Rx #60 caps meloxicam 15 mg tablet 15 mg PO DAILY 10/10/24 10/10/24 History multivitamin (Daily Multi-Vitamin 1 tablet PO DAILY 10/10/24 10/28/24 History tablet) ondansetron HCl 4 mg tablet 4 mg PO .prn 10/10/24 10/18/24 History pantoprazole 40 mg tablet,delayed 40 mg PO PRN Heartburn 10/10/24 10/18/24 History release albuterol sulfate 90 mcg/actuation 1 inh inhalation Q4-6H PRN 10/18/24 10/18/24 History aerosol inhaler shortness of breath or wheezing Patient hx anesthesia problems: none Family hx anesthesia problems: none Results Review: All pre-operative results and documents have been reviewed as part of the pre-operative evaluation. [facility] Past Medical History Medical History History of pancreatitis Pancreatitis GERD (gastroesophageal reflux disease) Abdominal pain Diarrhea Celiac disease Surgical History Surgical History History of cholecystectomy Social History Social History Smoking status: Never smoker Alcohol intake: never Substance use: never Substance use type: does not use Living arrangements: with family Spiritual care concerns: No Anes - Eval Final PreProcedure Day of Procedure 10/28/24 14:37 Patient weight: normal Lungs: normal air movement Airway: Mallampati scale class II Neurological: alert and oriented Last oral intake: >/= 8 hours ASA classification: II Emergent: no Anesthetic plan: proceed Anesthesia type and monitoring: general GIVS and standard monitoring Results Review: All pre-operative results and documents have been reviewed as part of the pre- operative evaluation. GERD, celiac, overall good health, pt can walk 1-2 fos, no cp or sob. Informed Consent: The patient's anesthetic plan and its attendant risks and benefits were discussed with the patient/family/POA. Questions were solicited and answers provided to the satisfaction of the patient/family/POA.
--- NOTE | 2024-10-28 14:51 | PM.IMHP ---
H&P: HPI History of Present Illness Date/Time: 10/28/24 14:51 Chief Complaint: GERD-screening colonoscopy Narrative: the patient has been complaining of chronic heartburn, but in the past couple months she has been experiencing dysphagia to solid food, especially bread. She is referred for EGD and colonoscopy Review of Systems Review of Systems: All systems reviewed & are unremarkable except as noted in HPI and below PMFSH Past Medical History Medical History (Updated 10/28/24 @ 14:53 by Alec Mendez MD) History of pancreatitis Pancreatitis GERD (gastroesophageal reflux disease) Abdominal pain Diarrhea Surgical History Surgical History History of cholecystectomy Social History Social History Smoking status: Never smoker Alcohol intake: never Substance use: never Substance use type: does not use Living arrangements: with family Spiritual care concerns: No Meds Home Medications and Allergies Home Medications ?Medication ?Instructions ?Recorded ?Confirmed ?Type alprazolam 0.25 mg tablet 0.25 mg PO QHS PRN anxiety 10/10/24 10/18/24 History bupropion HCl 75 mg tablet 75 mg PO DAILY 10/10/24 10/28/24 History dicyclomine 10 mg capsule 10 mg PO TID PRN abdominal pain 10/10/24 10/18/24 Rx #60 caps meloxicam 15 mg tablet 15 mg PO DAILY 10/10/24 10/10/24 History multivitamin (Daily Multi-Vitamin 1 tablet PO DAILY 10/10/24 10/28/24 History tablet) ondansetron HCl 4 mg tablet 4 mg PO .prn 10/10/24 10/18/24 History pantoprazole 40 mg tablet,delayed 40 mg PO PRN Heartburn 10/10/24 10/18/24 History release albuterol sulfate 90 mcg/actuation 1 inh inhalation Q4-6H PRN 10/18/24 10/18/24 History aerosol inhaler shortness of breath or wheezing Allergies Allergy/AdvReac Type Severity Reaction Status Date / Time amoxicillin (From Augmentin) Allergy Mild Unknown Verified 10/28/24 12:43 clavulanic acid (From Allergy Mild Unknown Verified 10/28/24 12:43 Augmentin) Vital Signs Vital Signs - 24 hr 10/28/24 12:45 Temperature 98.9 F Pulse Rate 71 Respiratory Rate 16 Blood Pressure 112/66 Pulse Oximetry 94 Oxygen Delivery Room Air Exam Const: General: cooperative and healthy appearing Resp: Effort & Inspection: normal respiratory effort and able to speak in complete sentences Auscultation: clear to auscultation bilaterally Cardio: Rate: regular rate Rhythm: regular rhythm GI: Inspection: normal to inspection GI Palp: No No hepatosplenomegaly present Auscultation: normal bowel sounds Rectal Exam: deferred Skin: General skin exam: normal color Psych: Appearance: grossly normal Mental Status: mental status grossly normal Assessment and Plan Assessment and plan (1) GERD (gastroesophageal reflux disease): Code(s): K21.9 - Gastro-esophageal reflux disease without esophagitis Status: Acute Assessment and Plan: The patient is deemed a good candidate for the procedures. Consent signed. Will proceed. (2) Dysphagia: Code(s): R13.10 - Dysphagia, unspecified Status: Acute
--- NOTE | 2024-10-28 15:13 | SUR.OPER ---
EGD: start 1458, end 1504 Colonoscopy: start 1512, end 1525
[2024-10-28 15:26] VITALS: BP 135/79; PULSE 89; RESP 22; O2SAT 100
[2024-10-28 15:36] VITALS: BP 130/76; PULSE 84; RESP 16; O2SAT 100
[2024-10-28 15:46] VITALS: BP 123/65; PULSE 64; RESP 18; O2SAT 100
== END 2024-10-28 16:03 | disposition home or self-care (01) ==
PROVIDERS: PCP Nurse Practitioner; Referring Provider Internal Medicine Gastroenterology; Visit Provider Internal Medicine Gastroenterology
PROC: 0DJ08ZZ Inspection of Upper Intestinal Tract, Via Natural or Artificial Opening Endoscopic (ICD-10-PCS; CPT 45378; principal; 2024-10-28 14:00)
DX: Z12.11 Encounter for screening for malignant neoplasm of colon (principal); D12.0 Benign neoplasm of cecum; K21.9 Gastro-esophageal reflux disease without esophagitis; K22.2 Esophageal obstruction; K44.9 Diaphragmatic hernia without obstruction or gangrene
CPT/HCPCS: 43450; 45385; 88305; J2003; J2704; J7120

== ENCOUNTER 2024-12-04 11:44 | Outpatient (CLI) | payer OTHER, SELFPAY ==
--- NOTE | ~2024-12-04 | XR_ITS ---
EXAMINATION: XR UGIAC w small bowel DATE: 12/04/2024 14:25 INDICATION: Chronic reflux and right upper quadrant abdominal pain. TECHNIQUE: The patient drank thick barium, gas-producing crystals, and thin barium. Conventional supi ne abdomen radiographs and fluoroscopic spot radiographs of the esophagus, stomach, and proximal smal l bowel were obtained. Additional overhead radiographs were obtained during the transit through the s mall bowel. Spot fluoroscopic images of the small bowel were obtained upon contrast reaching the cecu m. Fluoroscopy exposure time was 1.4 minutes. A total of 6 fluoroscopic images and 576 fluoroscopic i mages were recorded. Total DAP was 31.484 Gycm^2. COMPARISON: None. 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 The esophagus is normal without mass or stricture. Esophageal motility is normal. There is a very small sliding-type hiatal h ernia with esophageal B ring located 2.5 cm above the level of the diaphragm. There was no gastroesop hageal reflux with provocative maneuvers. The stomach and proximal small bowel are normal. Transit time from the stomach to proximal colon was approximately 90 minutes. There is normal caliber and mucosal fold pattern throughout the small bowel. Terminal ileum is normal. No tethering or abno rmal mass effect observed upon the small bowel with real-time fluoroscopy. IMPRESSION: 1. Very small sliding-type hiatal hernia without evident reflux with provocative maneuvers. Otherwise normal upper GI and small bowel follow-through study. Reviewed, dictated and finalized at location A. IMPRESSION: 1. Very small sliding-type hiatal hernia without evident reflux with provocativ e maneuvers. Otherwise normal upper GI and small bowel follow-through study.
--- OUTSIDE RECORDS SUMMARY | 2024-12-04 11:47 | XMS_ITS | Clinical Summary ---
Author Organization [facility] Address [address] [place] [address] Care Team Providers Care Concrete Engineer Name Role Phone Ronit Gallegos NP Primary Care Provider [phone] Allergies No known active allergies Medications buPROPion [...] P M CDT Height 157.5 cm (5' 2) 10/04/2018 2:24 PM CDT Body Mass Index [...] Insurance [employer] CHOICE POS II Care Teams Concrete Engineer Relationship Specialty Start Date End Date Ronit Gallegos NP [address] [place] [address] PCP - General NURSE PRACTITIONER 03/15/18
--- OUTSIDE RECORDS SUMMARY | 2024-12-04 11:48 | XMS_ITS ---
Author Organization [facility] Address [address] [facility] [facility] [address] [place] [address] Care Team Providers Care Real Estate Coordinator Name Role Phone Flash POLO, Radha Primary Care Provider Unavailab David POLO, FILOMENA Jay [phone] REASON FOR VISIT GI/med check Encounters Encounter Location Date Provider Diagnosis [facility] [address] [facility] [address] [place] [address] 01/15/2024 FILOMENA NELSON Plan Of Treatment No Information Progress Notes * Elizabeth PORTEROB: (54 yo F)Acc No.[id number]:01/15/2024 Progress Notes Patient: Elizabeth GARCIA Latosha Appointment Provider: She Nelson CNP :1970 A ge:53 Y S ex:Female Date:01/15/2024 Address:[address] [place], [place] [id number] Pcp:Radha Vidales NP Subjective: * Chief Complaints: * 1 . GI/med check. * Medical History: Objective: * Vitals: Assessment: Plan: * Treatment: * * Electronic signature of WILLIAM NELSON NP, MSN CASINO CASHIER MANAGER-BC on 12/04/2024 at 12:47 PM EDT Sign off status: Pending * Appointment Provider: She Nelson CNP Date: 0 01/15/2024 Generated for Printing/Faxing/eTransmitting on: 0 12/04/2024 12:47 PM EDT
--- OUTSIDE RECORDS SUMMARY | 2024-12-04 11:48 | XMS_ITS | Patient Health Record ---
Author Organization [facility] Address [address] [place] [address] [place] [address] Care Team Providers Care Obstetrician/Gynecologist Name Role Phone Flash POLO, Radha Primary Care Provider Penny Hernandez PAINTER SUPERVISOR, FILOMENA Unavailable Allergies No Known Allergies Reason For Referral No Information Medications Medication SIG (Take, Route, Frequency, Duration) Notes [...] Needs office visit for future refills Active Plan Of Treatment Pending Test Test Name Order Date CT Scan : Abd & Pelvis with IV and oral contrast 03/03/2022 CT ABDOMEN W/O CONTRAST 03/28/2022 CT Abdomen and Pelvis 02/28/2022 BUN, Creatinine 03/30/2022 BUN, Creatinine 04/01/2022 Insurance Providers Payer Name Payer Address Payer Phone Subscriber Number Group Number Insured Name Patient Relationship to Insured Coverage Start Date Coverage End Date [employer] PPO [address] [address] [place], [place] [phone] [id number] Elizabeth Porter Self - patient is the insured Medical (General) History Medical History History ICD Code anxiety asthma kidney stones gerd ulcers gallbladder dysfunction depression Surgical History Surgery Date(Month/Year) cholecystectomy ' uterine ablation cervical disc hernia repair colonoscopy/EGD 2013 colon/EGD 2003
--- OUTSIDE RECORDS SUMMARY | 2024-12-04 11:48 | XMS_ITS ---
Author Organization [facility] Address [address] [facility] [address] [place] [address] Care Team Providers Care Citrix Administrator Name Role Phone Flash POLO, Radha Primary Care Provider Penny Hernandez NP, FILOMENA Jay [phone] REASON FOR VISIT GERD, abd pain, bowel issues Encounters Encounter Location Date Provider Diagnosis [facility] [address] [facility] [address] [place] [address] 12/25/2023 FILOMENA NELSON Plan Of Treatment No Information Progress Notes * JIMI Elizabeth ClarkMisaelOB: (54 yo F)Acc No.[id number]:12/25/2023 Progress Notes Patient: Elizabeth GARCIA Appointment Provider: She Nelson CNP :1970 A ge:53 Y S ex:Female Date:12/25/2023 Address:[address] [place], [place] [id number] Pcp:Radha Vidales NP Subjective: * Chief Complaints: * 1 . GERD, abd pain, bowel issues. * Medical History: Objective: * Vitals: Assessment: Plan: * Treatment: * * Electronic signature of WILLIAM NELSON NP, MSN MANAGER TELECOM-BC on 12/04/2024 at 12:47 PM EDT Sign off status: Pending * Appointment Provider: She Nelson CNP Date: 0 12/25/2023 Generated for Printing/Faxing/eTransmitting on: 0 12/04/2024 12:47 PM EDT
== END 2024-12-04 11:45 | disposition home or self-care (01) ==
PROVIDERS: PCP Nurse Practitioner; Visit Provider Nurse Practitioner Family
DX: K44.9 Diaphragmatic hernia without obstruction or gangrene (principal); Z90.710 Acquired absence of both cervix and uterus; Z90.49 Acquired absence of other specified parts of digestive tract
CPT/HCPCS: 74246; 74248